=== PATIENT | female | born 1995 ===

== ENCOUNTER → 2022-10-26 | Outpatient (CLI) | payer OTHER | END | disposition home or self-care (01) | LOC: LAB 11:03 → LAB SHORT 11:03 | DX: N39.0 Urinary tract infection, site not specified (principal) | CPT/HCPCS: 87086 ==

== ENCOUNTER → 2025-05-19 | Outpatient (CLI) | payer OTHER ==
[~2025-05-19] MED LIST: BUPR150ER PO; IBUP800; MYLAN; Norethindrone0.35 MG PO
== END ==
LOC: LAB SHORT 11:01 → LAB 11:01
DX: J02.9 Acute pharyngitis, unspecified (principal)
CPT/HCPCS: 87081

== ENCOUNTER → 2025-06-19 | Outpatient (CLI) | payer OTHER | LOC: LAB 15:36 → LAB SHORT 15:36 | DX: N39.0 Urinary tract infection, site not specified (principal) | CPT/HCPCS: 87086 ==